=== PATIENT | male | born 1970 | race Caucasian/White ===

== ENCOUNTER 2017-04-24 17:31 | Inpatient (IN) | payer OTHER ==
[~2017-04-24] VITALS: Ht 182.9 cm; Wt 88.5 kg
[2017-04-24 20:00] VITALS: BP 96/64
[2017-04-25] VITALS: BP 135/80
[2017-04-25 02:41] LABS: *AMPHETAMINE, URINE NEGATIVE (NEGATIVE); *BARBITURATE, URINE NEGATIVE (NEGATIVE); *CANNABINOID, URINE POSITIVE (NEGATIVE); *COCCAINE, URINE NEGATIVE (NEGATIVE); *OPIATE, URINE POSITIVE (NEGATIVE); *PHENCYCLIDINE SCREEN,URINE NEGATIVE (NEGATIVE)
[2017-04-25 04:00] VITALS: BP 100/60
[2017-04-25 07:35] LABS: BASOPHILS % (AUTO) 0.3 % (0.0-2.0); EOSINOPHILS # (AUTO) 0.1 K/uL (0.0-0.7); EOSINOPHILS % (AUTO) 0.9 % (0.0-7.0); HEMATOCRIT 42.7 % (40-50); HEMOGLOBIN 14.9 G/DL (14.0-18.0); LYMPHOCYTES # (AUTO) 3.4 K/UL (0.8-4.8); LYMPHOCYTES % (AUTO) 30.5 % (20.5-51.5); MEAN CORPUSCULAR HGB CONC 35 g/dL (32.0-37.0); MEAN CORPUSCULAR VOLUME 88.6 FL (82.0-92.0); MONOCYTES # (AUTO) 0.8 K/UL (0.1-1.30); MONOCYTES % (AUTO) 7.2 % (0.0-11.0); NEUTROPHILS % (AUTO) 61.1 % (38.5-71.5); PLATELET COUNT (AUTO) 281 K/UL (150-450); RED BLOOD CELL COUNT(AUTO) 4.81 MIL/UL (4.7-6.1); WHITE BLOOD COUNT (AUTO) 11.3 K/UL (4.0-11.2)
[2017-04-25 07:48] LABS: ETHANOL < 3 MG/DL (0-0)
[2017-04-25 07:52] LABS: ALANINE AMINOTRANSFERASE 22 U/L (16-63); ALKALINE PHOSPHATASE 106 U/L (50-136); ASPARTATE AMINOTRANSFERASE 12 U/L (15-37); BILIRUBIN,TOTAL 0.7 mg/dL (0.2-1.0); CARBON DIOXIDE 30 mmol/L (21-32); CHLORIDE 101 mmol/L (98-107); CREATININE 1.1 mg/dL (0.6-1.3); GLUCOSE 102 mg/dL (74-106); MAGNESIUM 2.2 mg/dL (1.8-2.4); POTASSIUM 3.4 mmol/L (3.5-5.1); TOTAL PROTEIN, SERUM 7.7 g/dL (6.4-8.2); UREA NITROGEN, BLOOD 13 mg/dL (7-18)
[2017-04-25 08:00] VITALS: BP 119/70
[2017-04-25] MEDS ORDERED: QUET100T PO (10:03)
[2017-04-25] MEDS ORDERED: GABA600T2 PO (10:03)
[2017-04-25] MEDS ORDERED: LORA1TAB PO (10:03)
[2017-04-25 12:22] VITALS: BP 105/63
[2017-04-25 16:00] VITALS: BP 105/63
[2017-04-25 20:00] VITALS: BP 107/67
[2017-04-26 07:06] LABS: HEPATITIS B SURFACE AG Negative (Negative)
[2017-04-26 08:00] VITALS: BP 80/40
[2017-04-26 08:30] VITALS: BP 84/57
[2017-04-26 09:30] VITALS: BP 99/67
[2017-04-26 12:00] VITALS: BP 100/73
[2017-04-26 16:00] VITALS: BP 110/68
[2017-04-26 20:00] VITALS: BP 118/73
[2017-04-27 04:29] VITALS: BP 111/63
[2017-04-27 08:00] VITALS: BP 125/65
[2017-04-27 12:00] VITALS: BP 95/60
[2017-04-27 16:00] VITALS: BP 121/76
[2017-04-27 20:00] VITALS: BP 134/86
[2017-04-28] VITALS: BP 130/81
[2017-04-28 04:00] VITALS: BP 123/78
[2017-04-28 08:00] VITALS: BP 129/84
[2017-04-28 12:00] VITALS: BP 129/91
[2017-04-28 16:00] VITALS: BP 129/82
[2017-04-28 20:00] VITALS: BP 114/78
[2017-04-29 04:13] VITALS: BP 142/87
[2017-04-29 08:00] VITALS: BP 126/82
== END 2017-04-29 10:30 | disposition left against medical advice (07) | DRG 894 ==
LOC: SRC 17:31
PROVIDERS: ADMIT Internal Medicine; ATTEND Internal Medicine
PROC: HZ2ZZZZ Detoxification Services for Substance Abuse Treatment (ICD-10-PCS; principal; 2017-04-24)
PROC: HZ41ZZZ Group Counseling for Substance Abuse Treatment, Behavioral (ICD-10-PCS; 2017-04-27)
PROC: HZ31ZZZ Individual Counseling for Substance Abuse Treatment, Behavioral (ICD-10-PCS; 2017-04-27)
DX: F10.21 Alcohol dependence, in remission (principal); G62.1 Alcoholic polyneuropathy; F11.23 Opioid dependence with withdrawal; F13.232 Sedative, hypnotic or anxiolytic dependence with withdrawal with perceptual disturbance; G89.29 Other chronic pain; K57.30 Diverticulosis of large intestine without perforation or abscess without bleeding; G47.00 Insomnia, unspecified; Z88.0 Allergy status to penicillin; F41.1 Generalized anxiety disorder; Z82.49 Family history of ischemic heart disease and other diseases of the circulatory system; Z81.1 Family history of alcohol abuse and dependence; R26.81 Unsteadiness on feet; M54.5 Low back pain; D72.829 Elevated white blood cell count, unspecified; E87.6 Hypokalemia; Z79.899 Other long term (current) drug therapy
CPT/HCPCS: 36415; 70030-TC; 80307; 80346; 80349; 80361; 83735; 85025; 86580; 86592; 86705; 86803; 87340; 87806; A4663; G0480; J1885; J2405; J3411; Q0163

== ENCOUNTER 2017-04-29 10:33 | Emergency (ER) | payer OTHER ==
[~2017-04-29] VITALS: Ht 182.9 cm; Wt 95.3 kg
[~2017-04-29 10:33] MED LIST: GABA600T2 PO; QUET100T PO
--- NOTE | 2017-04-29 10:51 | NUR ---
pt was evaluated by dr smith. pt refused blood test and cxr. pt eloped at 1050. dr smith notified.
== END 2017-04-29 10:54 | disposition left against medical advice (07) ==
LOC: ER 10:33
DX: R07.9 Chest pain, unspecified (principal)
CPT/HCPCS: 93005; 99283; A4663